=== PATIENT | male | born 1950 | race Caucasian/White ===

== ENCOUNTER 2018-02-27 06:00 | Day surgery (SDC) | payer MEDICARE ==
[2018-02-27] MEDS ORDERED: LIDOCAINE 2% (SDV) 5 ML INJ (07:40)
[2018-02-27] MEDS ORDERED: PROPOFOL 60 ML (07:40)
== END 2018-02-27 12:21 | disposition home or self-care (01) ==
LOC: GIL 06:00
DX: K92.1 Melena (principal); C18.7 Malignant neoplasm of sigmoid colon; K64.8 Other hemorrhoids; I10 Essential (primary) hypertension; Z86.73 Personal history of transient ischemic attack (TIA), and cerebral infarction without residual deficits
CPT/HCPCS: 45380; 88305

== ENCOUNTER 2018-04-26 13:30 | Day surgery (SDC) | payer MEDICARE ==
[~2018-04-26 13:30] MED LIST: LIDOCAINE 2% (SDV) 5 ML INJ; ROCURONIUM 50 MG INJ; SUGAMMADEX SODIUM 200 MG/2 ML VIAL IV
[2018-04-26] MEDS ORDERED: CEFAZOLIN 2 GM/50 ML (PMX) 50 ML IVPB (14:00)
[2018-04-26] MEDS ORDERED: IOHEXOL 300MG/ML 30 ML BTL (15:07)
[2018-04-26] MEDS ORDERED: CEFAZOLIN 1 GM INJ (15:26)
[2018-04-26] MEDS ORDERED: PROPOFOL 20 ML (15:26)
[2018-04-26] MEDS: HEPARIN 1000 UNITS/ML 10 ML INJ (16:08)
[2018-04-26] MEDS ORDERED: FENTAnyl 50 MCG/ML VIAL (16:22)
[2018-04-26] MEDS: BUPIVACAINE 0.5%/EPI (SDV) 30 ML INJ (16:47)
[2018-04-26] MEDS: LIDOCAINE 1% (MPF) 30 ML INJ (16:47)
[2018-04-26] MEDS ORDERED: LACTATED RINGER'S 1,000 ML IV (16:49)
[2018-04-26] MEDS ORDERED: ONDANSETRON 4 MG INJ IV ×2 (17:00→17:30)
[2018-04-26] MEDS ORDERED: DIPHENHYDRAMINE 50 MG INJ IV (17:30)
[2018-04-26] MEDS ORDERED: hydrALAzine 20 MG INJ IV (17:30)
[2018-04-26] MEDS ORDERED: MEPERIDINE 25 MG INJ IV (17:30)
[2018-04-26] MEDS ORDERED: EPHEDrine SULFATE 50 MG/5 ML SYG IV (17:30)
[2018-04-26] MEDS ORDERED: FENTAnyl 50 MCG/ML VIAL IV ×3 (17:30)
[2018-04-26] MEDS ORDERED: LABETALOL HCL 20MG INJ IV (17:30)
[2018-04-26] MEDS ORDERED: ALBUTEROL 0.083% (NEB) 2.5 MG/3 ML AMP HHN (17:30)
[2018-04-26] MEDS ORDERED: OXYCODONE/ACETAMINOPHEN (5/325) TAB PO ×2 (17:30)
== END 2018-04-26 18:11 | disposition home or self-care (01) ==
LOC: SDS 13:30
DX: C18.9 Malignant neoplasm of colon, unspecified (principal); I10 Essential (primary) hypertension; E66.9 Obesity, unspecified; Z68.34 Body mass index [BMI] 34.0-34.9, adult; Z86.73 Personal history of transient ischemic attack (TIA), and cerebral infarction without residual deficits
CPT/HCPCS: 36561; 71045